=== PATIENT | female | born 1995 | race Caucasian/White ===

== ENCOUNTER 2017-06-17 14:43 | Inpatient (IN) | payer OTHER ==
[~2017-06-17] VITALS: Ht 179.1 cm; Wt 49.9 kg
[2017-06-17] MEDS ORDERED: DICYCLOMINE HCL 20 MG TABLET PO PRN (17:15)
[2017-06-17] MEDS ORDERED: DIAZEPAM 10 MG TABLET PO PRN (17:15)
[2017-06-17] MEDS ORDERED: DIAZEPAM 5 MG TABLET PO PRN (17:15)
[2017-06-17] MEDS ORDERED: ONDANSETRON 4 MG/2 ML VIAL IM PRN (17:15)
[2017-06-17] MEDS ORDERED: MIRALAX 17 GM POWD.PACK PO PRN (17:15)
[2017-06-17] MEDS ORDERED: MAG HYDROX/AL HYDROX/SIMETH 30 ML LIQUID UDC PO PRN (17:15)
[2017-06-17] MEDS ORDERED: MAGNESIUM HYDROXIDE 30 ML LIQUID UDC PO PRN (17:15)
[2017-06-17] MEDS ORDERED: diphenhydrAMINE 50 MG CAPSULE PO PRN (17:15)
[2017-06-17] MEDS ORDERED: LOPERAMIDE HCL 2 MG CAPSULE PO PRN ×2 (17:15)
[2017-06-17] MEDS ORDERED: ONDANSETRON ODT 4 MG TAB.RAPDIS SL PRN (17:15)
[2017-06-17] MEDS ORDERED: IBUPROFEN 600 MG TABLET PO PRN (17:15)
[2017-06-17] MEDS ORDERED: LORAZEPAM 2 MG/1 ML VIAL IM PRN (17:15)
[2017-06-17] MEDS ORDERED: ACETAMINOPHEN 325 MG TABLET PO PRN (17:15)
[2017-06-17] MEDS ORDERED: LORA1TAB (17:26)
[2017-06-17] MEDS ORDERED: PRAM0.253 PO (17:26)
[2017-06-17] MEDS ORDERED: GABA-536 PO (17:26)
[2017-06-17] MEDS ORDERED: MIRT15TA PO (17:26)
[2017-06-17] MEDS ORDERED: CYCL10TA9 PO (17:26)
[2017-06-17] MEDS ORDERED: ONDA8TAB6 PO (17:26)
[2017-06-17] MEDS ORDERED: TRAZ-147 PO (17:26)
[2017-06-17] MEDS ORDERED: LORA-258 PO (17:26)
[2017-06-17] MEDS ORDERED: OLAN5TAB3 PO (17:26)
[2017-06-17] MEDS ORDERED: CLON0.1T PO (17:26)
[2017-06-17 17:36] LABS: *URINE HCG, QUAL NEGATIVE (NEGATIVE)
[2017-06-17 17:58] VITALS: BP 101/64
[2017-06-17 18:05] LABS: *AMPHETAMINE, URINE NEGATIVE (NEGATIVE); *BARBITURATE, URINE NEGATIVE (NEGATIVE); *CANNABINOID, URINE NEGATIVE (NEGATIVE); *COCCAINE, URINE NEGATIVE (NEGATIVE); *OPIATE, URINE NEGATIVE (NEGATIVE); *PHENCYCLIDINE SCREEN,URINE NEGATIVE (NEGATIVE)
[2017-06-17 18:51] LABS: BASOPHILS # (AUTO) 0.1 K/uL (0.0-8.0); BASOPHILS % (AUTO) 0.8 % (0.0-2.0); EOSINOPHILS # (AUTO) 0.2 K/uL (0.0-0.7); EOSINOPHILS % (AUTO) 1.6 % (0.0-7.0); HEMATOCRIT 40.1 % (31.2-41.9); HEMOGLOBIN 13.8 g/dL (10.9-14.3); LYMPHOCYTES % (AUTO) 32.3 % (20.5-51.5); MEAN CORPUSCULAR HEMOGLOBIN 30.4 uug (24.7-32.8); MEAN CORPUSCULAR HGB CONC 34 g/dL (32.3-35.6); MEAN CORPUSCULAR VOLUME 88.6 fL (75.5-95.3); MONOCYTES # (AUTO) 0.4 K/uL (2.0-10.0); MONOCYTES % (AUTO) 4.4 % (0.0-11.0); NEUTROPHILS # (AUTO) 5.6 K/uL (1.8-8.9); NEUTROPHILS % (AUTO) 60.9 % (38.5-71.5); PLATELET COUNT (AUTO) 276 K/uL (179-408); RED BLOOD CELL COUNT(AUTO) 4.53 MIL/uL (3.63-4.92); WHITE BLOOD COUNT (AUTO) 9.3 K/uL (3.8-11.8)
[2017-06-17 18:52] LABS: ALANINE AMINOTRANSFERASE 19 U/L (14-59); ALKALINE PHOSPHATASE 152 U/L (50-136); ASPARTATE AMINOTRANSFERASE 11 U/L (15-37); BILIRUBIN,TOTAL 0.2 mg/dL (0.2-1.0); CARBON DIOXIDE 27 mmol/L (21-32); CHLORIDE 104 mmol/L (98-107); CREATININE 0.8 mg/dL (0.6-1.3); GLUCOSE 95 mg/dL (74-106); MAGNESIUM 2.1 mg/dL (1.8-2.4); POTASSIUM 3.6 mmol/L (3.5-5.1); TOTAL PROTEIN, SERUM 7.5 g/dL (6.4-8.2); UREA NITROGEN, BLOOD 6 mg/dL (7-18)
[2017-06-17 18:54] LABS: ETHANOL < 3 MG/DL (0-0)
[2017-06-17 20:00] VITALS: BP 116/63
[2017-06-17] MEDS: GABAPENTIN 600MG PO SCH (20:21)
[2017-06-17] MEDS: BACLOFEN 20 MG TABLET PO PRN (20:21)
[2017-06-17] MEDS ORDERED: PHENOBARBITAL 60 MG TABLET PO SCH (21:00)
[2017-06-17] MEDS: DIAZEPAM 10 MG TABLET PO PRN (22:46)
[2017-06-18] VITALS (7 sets, daily range): BP systolic 96–128; BP diastolic 64–75
[2017-06-18] MEDS: DIAZEPAM 10 MG TABLET PO PRN (02:48)
[2017-06-18] MEDS: GABAPENTIN 600MG PO SCH (08:53)
[2017-06-18] MEDS: PHENOBARBITAL 60 MG TABLET PO SCH ×4 (08:53→20:21)
[2017-06-18] MEDS ORDERED: TUBERCULIN,PURIF.PROT.DERIV. 5 TU/0.1 ML TEST ID ONE (09:00)
[2017-06-18] MEDS: BACLOFEN 20 MG TABLET PO PRN ×2 (10:39→18:16)
[2017-06-18] MEDS ORDERED: HYDROCORTISONE 1% CREAM 30 GM TUBE TP PRN (10:45)
[2017-06-18] MEDS: PATIENT MAY USE OWN MED- MD OK PO SCH ×2 (12:17→16:03)
[2017-06-18] MEDS: CLONIDINE HCL 0.1 MG TABLET PO PRN (15:48)
[2017-06-18] MEDS: GABAPENTIN 300 MG CAPSULE PO SCH (20:21)
[2017-06-18] MEDS: MIRTAZAPINE 15 MG TABLET PO SCH (20:22)
[2017-06-19] VITALS: BP 110/70
[2017-06-19 07:11] LABS: HEPATITIS B SURFACE AG Negative (Negative)
[2017-06-19 08:00] VITALS: BP 98/62
[2017-06-19] MEDS: PATIENT MAY USE OWN MED- MD OK PO SCH ×4 (09:02→17:00)
[2017-06-19] MEDS: PHENOBARBITAL 60 MG TABLET PO SCH ×3 (09:02→20:53)
[2017-06-19] MEDS: BACLOFEN 20 MG TABLET PO PRN ×3 (09:02→20:54)
[2017-06-19 12:22] VITALS: BP 105/71
[2017-06-19] MEDS: CLONIDINE HCL 0.1 MG TABLET PO PRN (13:55)
[2017-06-19] MEDS ORDERED: HYDROXYZINE PAMOATE 25 MG CAPSULE PO ONE (15:00)
[2017-06-19 16:00] VITALS: BP 104/66
[2017-06-19 20:00] VITALS: BP 119/82
[2017-06-19] MEDS: GABAPENTIN 300 MG CAPSULE PO SCH (20:53)
[2017-06-19] MEDS: MIRTAZAPINE 15 MG TABLET PO SCH (20:53)
[2017-06-19] MEDS: PRAZOSIN HCL 1 MG CAPSULE PO SCH (20:53)
[2017-06-20] VITALS: BP 108/72
[2017-06-20 08:00] VITALS: BP 91/53
[2017-06-20] MEDS: PATIENT MAY USE OWN MED- MD OK PO SCH ×3 (08:45→16:31)
[2017-06-20] MEDS: PHENOBARBITAL 60 MG TABLET PO SCH ×3 (08:46→21:47)
[2017-06-20] MEDS: BACLOFEN 20 MG TABLET PO PRN ×3 (08:51→21:48)
[2017-06-20 12:00] VITALS: BP 134/81
[2017-06-20 16:00] VITALS: BP 136/82
[2017-06-20 20:00] VITALS: BP 130/87
[2017-06-20] MEDS ORDERED: HYDROXYZINE PAMOATE 25 MG CAPSULE PO ONE (21:15)
[2017-06-20] MEDS: MIRTAZAPINE 15 MG TABLET PO SCH (21:47)
[2017-06-20] MEDS: PRAZOSIN HCL 1 MG CAPSULE PO SCH (21:48)
[2017-06-20] MEDS: GABAPENTIN 300 MG CAPSULE PO SCH (21:48)
[2017-06-21] VITALS: BP 110/62
[2017-06-21 08:00] VITALS: BP 115/75
[2017-06-21] MEDS ORDERED: PHENOBARBITAL 60 MG TABLET PO SCH (09:00)
[2017-06-21] MEDS: PATIENT MAY USE OWN MED- MD OK PO SCH (09:03)
[2017-06-21] MEDS: BACLOFEN 20 MG TABLET PO PRN (09:06)
[2017-06-21 12:00] VITALS: BP 120/79
[2017-06-22] MEDS ORDERED: PHENOBARBITAL 60 MG TABLET PO SCH (09:00)
== END 2017-06-21 13:25 | disposition left against medical advice (07) | DRG 894 ==
LOC: SRC 16:16
PROVIDERS: ADMIT Internal Medicine; ATTEND Internal Medicine
PROC: HZ2ZZZZ Detoxification Services for Substance Abuse Treatment (ICD-10-PCS; principal; 2017-06-17)
PROC: HZ41ZZZ Group Counseling for Substance Abuse Treatment, Behavioral (ICD-10-PCS; 2017-06-18)
PROC: HZ31ZZZ Individual Counseling for Substance Abuse Treatment, Behavioral (ICD-10-PCS; 2017-06-19)
DX: F13.230 Sedative, hypnotic or anxiolytic dependence with withdrawal, uncomplicated (principal); F11.21 Opioid dependence, in remission; F17.210 Nicotine dependence, cigarettes, uncomplicated; Z81.1 Family history of alcohol abuse and dependence; Z80.3 Family history of malignant neoplasm of breast; G47.00 Insomnia, unspecified; F41.1 Generalized anxiety disorder; G47.50 Parasomnia, unspecified; F43.10 Post-traumatic stress disorder, unspecified
CPT/HCPCS: 36415; 70030-TC; 80307; 83735; 84703; 85025; 86580; 86592; 86705; 86803; 87340; 87806; A4663; G0480; J8499; Q0163

== ENCOUNTER 2017-07-07 21:25 | Inpatient (IN) | payer OTHER ==
[~2017-07-07] VITALS: Ht 177.8 cm; Wt 53.5 kg
[2017-07-07] MEDS ORDERED: LORAZEPAM 2 MG/1 ML VIAL IM PRN (22:30)
[2017-07-07] MEDS ORDERED: DICYCLOMINE HCL 20 MG TABLET PO PRN (22:30)
[2017-07-07] MEDS ORDERED: LORAZEPAM 1 MG TABLET PO PRN ×2 (22:30)
[2017-07-07] MEDS ORDERED: ONDANSETRON ODT 4 MG TAB.RAPDIS SL PRN (22:30)
[2017-07-07] MEDS ORDERED: CLONIDINE HCL 0.1 MG TABLET PO PRN (22:30)
[2017-07-07] MEDS ORDERED: MIRALAX 17 GM POWD.PACK PO PRN (22:30)
[2017-07-07] MEDS ORDERED: ONDANSETRON 4 MG/2 ML VIAL IM PRN (22:30)
[2017-07-07] MEDS ORDERED: BUPRENORPHINE HCL 2 MG TAB.SUBL SL PRN (22:30)
[2017-07-07] MEDS ORDERED: IBUPROFEN 600 MG TABLET PO PRN (22:30)
[2017-07-07] MEDS ORDERED: ACETAMINOPHEN 325 MG TABLET PO PRN (22:30)
[2017-07-07] MEDS ORDERED: diphenhydrAMINE 50 MG CAPSULE PO PRN (22:30)
[2017-07-07] MEDS ORDERED: MAG HYDROX/AL HYDROX/SIMETH 30 ML LIQUID UDC PO PRN (22:30)
[2017-07-07] MEDS ORDERED: LOPERAMIDE HCL 2 MG CAPSULE PO PRN ×2 (22:30)
--- NOTE | 2017-07-07 22:55 | NUR ---
PRE-ADMISSION NOTE Patient seen at intake, alert and oriented x4. Vitals signs as follows: BP 121/76, HR 101, O2 SAT 100%, Temp: 97.8, pain: 0/10, RR 16/min. Patient reports feeling nauseous and itchy. She states that she had a rash on her back that has spread to other areas of her body. Patient is allergic to acetaminophen, gluten, and lactose. Patient is ambulatory with steady gait, breathing is even and unlabored. Patient denies chest pain at this time. Patient was informed of unit policies and procedures. Patient verbalized understanding to unit protocols. Pt was not able to provide UDS at intake. Will continue with admission once patient arrives on the unit.
--- NOTE | 2017-07-07 23:38 | NUR ---
PRN ZOFRAN AND BENADRYL Patient reports nausea and states she has difficulty sleeping. PRN Zofran given SL, PRN Benadryl given PO. Safety measures in place, call light within reach. Will reassess accordingly.
--- NOTE | 2017-07-08 | NUR ---
ADMISSION NOTE Patient is admitted on the unit on 07/07/17 at 2316 for heroin, xanax, cocaine and ETOH withdrawals. Patients skin and body check completed. Skin is warm, dry and intact with generalized body rash that patient reports has been itchy for the last 2 weeks. Patient is 5 10 and weighs 118 lbs. Patient is alert and oriented x4, anxious and nauseous, reports vomiting on and off over the last couple days. Patient lungs are clear bilaterally, breathing is even and unlabored. Patients abdomen is soft, non-tender, capillary refill is <3 seconds. Patients initial COWS is 9, CIWA is 13. Vitals signs as follows: BP 121/76, HR 101, O2 SAT 100%, Temp: 97.8, pain: 0/10, RR 16/min. Patient states she has allergies to acetaminophen, gluten and lactose. Patient has a history of anxiety, insomnia, asthma, right tympanic membrane rupture, recurrent ear infections in the right ear. Patient is on fall and seizure precautions with history of withdrawal induced seizures, last seizure in February of 2017. Patient smokes about half a pack of cigarettes daily. Substance history: 1. Heroin, 1.5 grams daily for the past 3 days. Last intake was 07/07/27 of 1.5 grams. 2. Xanax, 6-8mg daily PO for the past 3 days. Last intake was 07/06/27 of 6-8mg. 3. Cocaine, about 1 gram daily for the past 3 days. Last intake was 07/06/17 of about a gram. 4. ETOH (mixed drinks) 3-4 drinks daily for the past 3 days. Last intake was 07/06/17 of 4 drinks. Patient was shown to her room after being oriented to the unit. Safety measures in place, side rails up x2, bed locked in low position, call light within reach. Will continue to monitor.
--- NOTE | 2017-07-08 00:08 | NUR ---
PRN ZOFRAN REASSESSMENT Patient reports nausea has subsided. PRN Zofran effective. Safety measures in place, call light within reach. Will continue to monitor.
--- NOTE | 2017-07-08 00:38 | NUR ---
PRN BENADRYL REASSESSMENT Patient reports she is "not sleepy yet." PRN Benadryl not effective. Respirations even and unlabored. Safety measures in place, call light within reach. Will continue to monitor.
[2017-07-08 00:59] LABS: BASOPHILS % (AUTO) 0.4 % (0.0-2.0); EOSINOPHILS # (AUTO) 0.3 K/uL (0.0-0.7); EOSINOPHILS % (AUTO) 3.3 % (0.0-7.0); HEMATOCRIT 35.7 % (31.2-41.9); LYMPHOCYTES # (AUTO) 1.5 K/uL (20.0-40.0); LYMPHOCYTES % (AUTO) 16.5 % (20.5-51.5); MEAN CORPUSCULAR HGB CONC 34 g/dL (32.3-35.6); MONOCYTES # (AUTO) 0.8 K/uL (2.0-10.0); MONOCYTES % (AUTO) 8.7 % (0.0-11.0); NEUTROPHILS # (AUTO) 6.7 K/uL (1.8-8.9); NEUTROPHILS % (AUTO) 71.1 % (38.5-71.5); PLATELET COUNT (AUTO) 246 K/uL (179-408); RED BLOOD CELL COUNT(AUTO) 4.01 MIL/uL (3.63-4.92); WHITE BLOOD COUNT (AUTO) 9.4 K/uL (3.8-11.8)
[2017-07-08 01:06] LABS: ETHANOL < 3 MG/DL (0-0)
[2017-07-08 01:12] LABS: *URINE HCG, QUAL NEGATIVE (NEGATIVE)
[2017-07-08 01:37] LABS: *AMPHETAMINE, URINE POSITIVE (NEGATIVE); *BARBITURATE, URINE NEGATIVE (NEGATIVE); *CANNABINOID, URINE NEGATIVE (NEGATIVE); *COCCAINE, URINE POSITIVE (NEGATIVE); *OPIATE, URINE POSITIVE (NEGATIVE); *PHENCYCLIDINE SCREEN,URINE NEGATIVE (NEGATIVE)
[2017-07-08 01:58] LABS: ALANINE AMINOTRANSFERASE 21 U/L (14-59); ALKALINE PHOSPHATASE 129 U/L (50-136); AMYLASE 50 U/L (25-115); ASPARTATE AMINOTRANSFERASE 19 U/L (15-37); BILIRUBIN,TOTAL 0.5 mg/dL (0.2-1.0); CARBON DIOXIDE 26 mmol/L (21-32); CHLORIDE 99 mmol/L (98-107); CREATININE 0.8 mg/dL (0.6-1.3); GLUCOSE 107 mg/dL (74-106); MAGNESIUM 2.1 mg/dL (1.8-2.4); POTASSIUM 4.5 mmol/L (3.5-5.1); TOTAL PROTEIN, SERUM 7.6 g/dL (6.4-8.2); UREA NITROGEN, BLOOD 11 mg/dL (7-18)
--- NOTE | 2017-07-08 02:00 | NUR ---
PRN ATIVAN Patient has a CIWA of 13, PRN Ativan 2mg given PO. Safety measures in place, call light within reach. Will continue to monitor and reassess.
[2017-07-08] MEDS ORDERED: 5-HY50CA2 PO (02:32)
[2017-07-08] MEDS ORDERED: ASCO-420 PO (02:32)
[2017-07-08] MEDS ORDERED: ONDA4TAB10 PO (02:32)
[2017-07-08] MEDS ORDERED: MELA5TAB PO (02:32)
[2017-07-08] MEDS ORDERED: NAPR-1160 PO (02:32)
--- NOTE | 2017-07-08 03:00 | NUR ---
PRN ATIVAN REASSESSMENT Patient is in bed with eyes closed. Safety measures in place, call light within reach. Will continue to monitor.
--- NOTE | 2017-07-08 04:00 | NUR ---
VITAL SIGNS REFUSED, COWS & CIWA DEFERRED Patient refused vital signs, COWS and CIWA deferred due to patient sleeping. Respirations even and unlabored, 16/min. Safety measures in place, call light within reach. Will continue to monitor.
--- NOTE | 2017-07-08 07:15 | NUR ---
END OF SHIFT Patient is a 22-year-old female admitted 07/07/17 for heroin, xanax, cocaine, and ETOH withdrawal. Patient received PRN Zofran, Benadryl, and Ativan during shift. Patient slept for 4 hours, total intake of 1,150 mL, void x1, stool x0. Last COWS was 9, last CIWA was 13. Safety measures in place, call light within reach. Will endorse to day shift.
--- NOTE | 2017-07-08 07:30 | NUR ---
START OF SHIFT Pt 22 y/o female admitted for medically supervised withdrawal. Pt received in room on bed with eyes closed resting, and is arousable, but requires some stimuli. Respirations even and unlabored. Pt refusing to answer any questions or participate with assessment this morning. It was reported that pt slept for 4 hours last night. Bed on lowest position with side rails x2 up for safety. Call light within reach.
--- NOTE | 2017-07-08 08:00 | NUR ---
VS REFUSAL Pt refused to have vital signs done even with encouragement. Pt not cooperative.
--- NOTE | 2017-07-08 08:00 | NUR ---
COWS/ CIWA DEFFERED Pt refused to answer any questions for cows/ciwa assessment.
[2017-07-08] MEDS ORDERED: TUBERCULIN,PURIF.PROT.DERIV. 5 TU/0.1 ML TEST ID SCH (09:00)
--- NOTE | 2017-07-08 09:30 | NUR ---
DR LUO Pt refused to speak with Dr. Luo this morning.
[2017-07-08 12:00] VITALS: BP 127/74
--- NOTE | 2017-07-08 12:57 | NUR ---
CIWA pt with ciwa=9 noted. aware and awaiting orders.
[2017-07-08] MEDS ORDERED: CLONIDINE HCL 0.1 MG TABLET PO SCH (13:00)
[2017-07-08] MEDS ORDERED: HYDROXYZINE PAMOATE 25 MG CAPSULE PO PRN (13:00)
[2017-07-08] MEDS: GABAPENTIN 300 MG CAPSULE PO SCH ×3 (14:08→21:31)
[2017-07-08 16:00] VITALS: BP 115/74
--- NOTE | 2017-07-08 19:12 | NUR ---
END OF SHIFT Pt 22 y/o female admitted for medically supervised withdrawal. Pt appears disheveled. Pt alert and oriented to name, place, and time. [place]. Respirations even and unlabored. Bilateral hand tremors noted this morning. Pt with period of anxiety this morning, pacing and with pressured fast speech noted. Pt with cows= 5@1200, 5 @1600; ciwa=3@1200, 5@1600. Cows and ciwa @ 0800 were deferred this morning. Pt refused to be assessed. Pt is scheduled to be discharged tomorrow. Pt observed mostly isolative to room this morning. Pt attended group activity. Pt medication compliant and tolerated well. No ASE noted. Bed on lowest position with side rails x2 up for safety. Call light within reach. No distress noted at this time.
--- NOTE | 2017-07-08 19:15 | NUR ---
Start of Shift Patient Received. Patient is in her room, awake, alert and verbally responsive. Patient is noted to be fidgety in bed watching TV. Room appears with an excessive amount of snacks and wrappers on beside table. Per endorsement, patient is set for discharge tomorrow 07/09/17. Patient was noted to refuse AM vitals and noted to be withdrawn to room. Upon speaking with patient, she is able to verbalize effective coping skills to maintain sober lifestyle. Patient states Im back here because I wanted to go out and get high on last time to really understand if I want to stay clean. Im over this. Now I know my time at [facility] will be effective. Will continue to monitor.
[2017-07-08 20:30] VITALS: BP 113/75
[2017-07-08] MEDS ORDERED: IBUP-1955 PO (20:36)
[2017-07-08] MEDS ORDERED: CLON0.1T14 PO (20:36)
[2017-07-08] MEDS ORDERED: DICY20TA28 PO (20:36)
[2017-07-08] MEDS ORDERED: METH-406 PO (20:36)
[2017-07-08] MEDS ORDERED: MIRT15TA7 PO (20:36)
[2017-07-08] MEDS ORDERED: HYDR-3895 PO (20:36)
[2017-07-08] MEDS ORDERED: GABA-534 PO (20:36)
[2017-07-08] MEDS ORDERED: MIRTAZAPINE 15 MG TABLET PO SCH (21:00)
[2017-07-08] MEDS: CLONIDINE HCL 0.1 MG TABLET PO SCH (21:31)
[2017-07-08] MEDS: METHOCARBAMOL 750 MG TABLET PO PRN (21:37)
--- NOTE | 2017-07-08 21:37 | NUR ---
PRN Medication Administration Patient is noted in bed, awake, and alert. Patient is able to carry conversation with good eye contact but is noted to be restless, easily irritable, anxious, verbalizing increase lower back muscle spasms. PRN Vistaril and Robaxin administered with routine medications. Will continue to monitor.
--- NOTE | 2017-07-08 22:40 | NUR ---
PRN Medication Reassessment Patient is noted in bed sleeping. Breathing even and non labored. No signs of restlessness or discomfort noted. PRN Vistaril and Robaxin noted to be effective. Will continue to monitor.
[2017-07-09 00:26] VITALS: BP 105/65
[2017-07-09 04:28] VITALS: BP 100/63
--- NOTE | 2017-07-09 07:24 | NUR ---
End of Shift Patient is in bed sleeping. Breathing even and non labored. No signs of restlessness noted. Patient is set for discharge today 07/09/17. Patient was noted to be restless, anxious, verbalizing increased lower back muscle spasms with PRN Vistaril and Robaxin administered. Medications noted to be effective. Patient noted to sleep a total of 6 hours with Last noted CIWA 6 and COWS 6. All needs attended to promptly. Will endorse to continue plan of care as ordered.
--- NOTE | 2017-07-09 07:30 | NUR ---
Start of Shift Notes: Endorsement received from night nurse. Patient is a 22 year old female for opiate/ETOH/BZO dependence. Patient will be discharging today. Received patient in her room. Appears unkempt with empty bag of chips, candy wrapper and water bottles at bedside. Encouraged patient to increase personal grooming and to maintain personal care. Educated patient on the discharge process. Patient verbalized understanding. Slept for 7 hours. Last COWS 6/CIWA 6. Will monitor.
[2017-07-09 08:00] VITALS: BP 103/60
[2017-07-09 08:35] VITALS: BP 103/60
[2017-07-09] MEDS: CLONIDINE HCL 0.1 MG TABLET PO SCH (08:35)
[2017-07-09] MEDS: GABAPENTIN 300 MG CAPSULE PO SCH (08:35)
[2017-07-09] MEDS: METHOCARBAMOL 750 MG TABLET PO PRN (08:41)
--- NOTE | 2017-07-09 08:41 | NUR ---
Robaxin 750 mg PO given: Patient verbalizes complain of 5/10 generalized muscle aching. Non-pharmacological interventions provided but ineffective. Medicated patient with Robaxin 750 mg PO as ordered. Will monitor for effectiveness.
--- NOTE | 2017-07-09 09:27 | NUR ---
Re-assessment: Robaxin and Discharged: Patient verbalizes relief from muscle aches. PL 06/09. Discharge education provided regarding patient's instructions and prescriptions. Patient verbalized good understanding of all teachings. [employer]ICAL [employer]IST[employer] cabinet checked. Cassette checked. Patient signed all paperwork and home meds that she brought upon admission. VS stable. COWS 5/CIWA 5. Patient left in stable condition. Picked up by [facility] to be transported to [facility].
[2017-07-09 13:08] LABS: HEPATITIS B SURFACE AG Negative (Negative)
== END 2017-07-09 09:27 | disposition other institution (70) | DRG 895 ==
LOC: SRC 22:22
PROVIDERS: ADMIT Internal Medicine; ATTEND Internal Medicine
PROC: HZ2ZZZZ Detoxification Services for Substance Abuse Treatment (ICD-10-PCS; principal; 2017-07-07)
PROC: HZ41ZZZ Group Counseling for Substance Abuse Treatment, Behavioral (ICD-10-PCS; 2017-07-08)
DX: F11.23 Opioid dependence with withdrawal (principal); F14.20 Cocaine dependence, uncomplicated; F10.239 Alcohol dependence with withdrawal, unspecified; Y90.9 Presence of alcohol in blood, level not specified; F17.210 Nicotine dependence, cigarettes, uncomplicated; Z81.1 Family history of alcohol abuse and dependence; Z80.3 Family history of malignant neoplasm of breast; Z59.1 Inadequate housing; F43.10 Post-traumatic stress disorder, unspecified; G47.00 Insomnia, unspecified; G47.50 Parasomnia, unspecified; F41.1 Generalized anxiety disorder; F15.229 Other stimulant dependence with intoxication, unspecified; F13.239 Sedative, hypnotic or anxiolytic dependence with withdrawal, unspecified
CPT/HCPCS: 36415; 70030-TC; 80307; 80324; 80353; 80361; 83735; 84703; 85025; 86592; 86705; 86803; 87340; 87806; G0480; Q0162; Q0163